=== PATIENT | male | born 1950 | race African-American/Black ===

== ENCOUNTER 2018-11-12 09:28 | Day surgery (SDC) | payer MEDICARE, OTHER ==
[~2018-11-12] VITALS: Ht 172.7 cm; Wt 81.3 kg
[~2018-11-12 09:28] MED LIST: FA/M1TAB3; FLUC150T PO; GABA600T PO; HYDR-3498 PO; HYDR-762 PO; IBUP-1542 PO; KETO15CR TOP; OMEP20CA9 PO
[2018-11-12 11:00] VITALS: BP 143/74; PULSE 73; RESP 20; Ht 172.7 cm; Wt 81.3 kg
[2018-11-12] MEDS ORDERED: LYRICA (11:11)
[2018-11-12] MEDS ORDERED: LIDOCAINE 100 MG SYRINGE ONE (11:42)
[2018-11-12] MEDS ORDERED: PROPOFOL 40 ML ONE (11:42)
[2018-11-12] MEDS ORDERED: FENTAnyl 50 MCG/ML VIAL ONE (11:42)
--- NOTE | 2018-11-12 11:48 | PREAC ---
Date/Time of Note Date/Time of Note DATE: 11/12/18 TIME: 11:47 Anesthesia Eval and Record Evaluation Time Pre-Procedure Interview DATE: 11/12/18 TIME: 11:47 Age 68 Sex male NPO: 8 hrs Preoperative diagnosis REFLUX ESOPHAGITIS, SCREENING COLON Planned procedure EGD, COLONOSCOPY Past Medical History Past Medical History: Includes Neuro: Other (NEUROPATHY POST TRAUMA) GI: GERD Surgery & Anesthesia Issues No known issue Meds Anticoagulation: No Beta Sher within 24 hr: No Reason Beta Sher not given: Pt. not on B-Sher Reported Medications [Lyrica] No Conflict Check 11/12/18 Omeprazole* (Prilosec*) 20 Mg Capsule.dr, 1 TAB PO DAILY 10/22/11 Discontinued Reported Medications Fa/Mv,Ca,Fe,Min/Lycopene/Lut (Centrum Tablet) 1 Tab Tablet 11/25/11 Gabapentin* (Neurontin*) 600 Mg Tablet, 1 TAB PO TID 10/22/11 Discontinued Scripts Ketoconazole* (Ketoconazole*) 60 Gm Cream.gm., 1 APPLIC TOP BID for 7 Days, EA Prov:CARLOS ALBERTO MICHELLE 08/06/15 Fluconazole* (Diflucan*) 150 Mg Tablet, 150 MG PO ONCE, #1 TAB Prov:CARLOS ALBERTO MICHELLE 08/06/15 Ibuprofen* (Motrin*) 600 Mg Tab, 600 MG PO Q6, #30 TAB Prov:CARLOS ALBERTO MICHELLE 08/06/15 Hydrocodone Bit-Acetaminophen* ([place]*) 10-325 Mg Tablet, 1 TAB PO DAILY PRN for PAIN, #15 TAB 0 Refills Prov:DAWIT SERVIN PA-C 05/09/15 Hydrocodone Bit-Acetaminophen* ([place]*) 5-325 Mg Tab, 1 TAB PO Q6 PRN for PAIN for 2 Days, TAB Prov:BRITTNEY MILLIGAN PA-C 11/27/14 Meds reviewed: Yes Allergies Coded Allergies: No Known Drug Allergies (Verified Allergy, Mild, 11/12/18) Allergies Reviewed: Yes Labs/Studies Labs Reviewed: Reviewed by anesthesiologist test: N/A Pre-procedure Exam Last vitals Vital Signs Date Temp Pulse Resp B/P (MAP) Pulse Ox O2 O2 Flow FiO2 Time Delivery Rate 11/12/18 97.3 73 20 143/74 98 Room Air 11:00 (97) Airway: Adequate mouth opening, Adequate thyromental dist Mallampati: Mallampati II Teeth: Normal Lung: Normal Heart: Normal ASA Physical Status ASA physical status: 2 Emergency: None Planned Anesthetic General/MAC: MAC Planned Pain Management Parenteral pain med Pre-operative Attestations Prior to commencing anesthesia and surgery, the patient was re-evaluated, there was verification of: *The patient's identity *The results of appropriate recent lab work and preoperative vital signs *The above evaluation not changing prior to induction *Anesthetic plan, risk benefits, alternative and complications discussed with patient/family; questions answered; patient/family understands, accepts and wishes to proceed. Bryce Castillo M.D. Nov 12, 2018 11:48
--- NOTE | 2018-11-12 12:14 | PAC ---
Date/Time of Note Date/Time of Note DATE: 11/12/18 TIME: 12:14 Post-Anesthesia Notes Post-Anesthesia Note Last documented vital signs Vital Signs Date Temp Pulse Resp B/P (MAP) Pulse Ox O2 O2 Flow FiO2 Time Delivery Rate 11/12/18 97.3 73 20 143/74 98 Room Air 11:00 (97) Activity: WNL Respiratory function: WNL Cardiovascular function: WNL Mental status: Baseline Pain reasonably controlled: Yes Hydration appropriate: Yes Nausea/Vomiting absent: Yes Bryce Castillo M.D. Nov 12, 2018 12:14
== END 2018-11-12 15:33 | disposition home or self-care (01) ==
LOC: GIL 09:28
PROVIDERS: ATTEND Internal Medicine Gastroenterology
DX: Z12.11 Encounter for screening for malignant neoplasm of colon (principal); K62.1 Rectal polyp; K57.30 Diverticulosis of large intestine without perforation or abscess without bleeding; K64.8 Other hemorrhoids; K29.60 Other gastritis without bleeding; K21.9 Gastro-esophageal reflux disease without esophagitis; K44.9 Diaphragmatic hernia without obstruction or gangrene
CPT/HCPCS: 43239; 45380; 88305; 88312; J2001; J3010